=== PATIENT | male | born 1940 | race Hispanic/Latino ===

== ENCOUNTER 2018-11-02 14:20 | Inpatient (IN) | payer MEDICARE ==
--- NOTE | 2018-11-02 14:36 | Emergency Department Report ---
ED Altered Mental Status HPI - General Stated Complaint: SYNCOPE Time Seen by Provider: 11/02/18 14:34 ED Review of Systems ROS: Stated complaint: SYNCOPE Other details as noted in HPI Critical care attestation.: If time is entered above; I have spent that time in minutes in the direct care of this critically ill patient, excluding procedure time. ED Disposition Condition: Stable
[2018-11-02] MEDS ORDERED: NACL 0.9% 1000 ML 1,000 ML IV ONE (14:44)
[2018-11-02 15:05] LABS: Basophils % (Auto) 0.2 % (0.0-1.8); Hematocrit 40.4 % (35.5-45.6); Lymphocytes # (Auto) 0.6 K/mm3 (1.2-5.4); Lymphocytes % (Auto) 6.9 % (13.4-35.0); Mean Corpuscular HGB Conc 35 % (32-34); Mean Corpuscular Volume 92 fl (84-94); Monocytes # (Auto) 0.6 K/mm3 (0.0-0.8); Monocytes % (Auto) 6.5 % (0.0-7.3); Platelet Count 227 K/mm3 (140-440); Red Cell Distribution Width 14.1 % (13.2-15.2)
[2018-11-02 15:25] LABS: Albumin 4.1 g/dL (3.9-5); Calcium 9.9 mg/dL (8.4-10.2)
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
[2018-11-02 16:38] LABS: Bilirubin,Urine NEG (Negative); Blood,Urine NEG (Negative); Color,Urine Straw (Yellow); Mucus,Urine FEW /HPF; Protein,Urine <15 mg/dL mg/dL (Negative); Urobilinogen,Urine < 2.0 mg/dL (<2.0); WBC,Urine < 1.0 /HPF (0.0-6.0)
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
--- NOTE | 2018-11-02 17:28 | Cat Scan Report ---
CT ABDOMEN AND PELVIS WITHOUT CONTRAST INDICATION / CLINICAL INFORMATION: diarhea, hx of diverticulits and obstruction. TECHNIQUE: Axial CT images were obtained through the abdomen and pelvis without IV contrast. All CT scans at [facility] location are performed using CT dose reduction for ALARA by means of automated exposure control. COMPARISON: None available. FINDINGS: LOWER CHEST: No significant abnormality. LIVER: No significant abnormality. GALLBLADDER: No significant abnormality. BILE DUCTS: No significant abnormality. PANCREAS: No significant abnormality. SPLEEN: No significant abnormality. ADRENALS: No significant abnormality. RIGHT KIDNEY and URETER: Significant cortical thinning with renal sinus lipomatosis. Punctate calcifi cations present. LEFT KIDNEY and URETER: Significant cortical thinning with renal sinus lipomatosis. Punctate calcific ations present. STOMACH and SMALL BOWEL: Multiple loops of dilated small bowel with air-fluid levels COLON: No significant abnormality. APPENDIX: No significant abnormality. PERITONEUM: Surgical changes are present deep pelvis. LYMPH NODES: No significant adenopathy. AORTA and ARTERIES: No significant abnormality. IVC and VEINS: No significant abnormality. URINARY BLADDER: No significant abnormality. REPRODUCTIVE ORGANS: No significant abnormality. ADDITIONAL FINDINGS: None. SKELETAL SYSTEM: No lytic or sclerotic bone lesion can be identified. Extensive degenerative changes lumbar spine present IMPRESSION: 1. Abnormal appearance of the CT abdomen pelvis consistent with a small bowel obstruction 2. Evidence of previous surgery within the pelvis 3. Diverticulosis descending colon and sigmoid colon 4. Cortical thinning both kidneys with bilateral nephrolithiasis Signer Name: Jese Montilla MD Signed: 11/02/2018 5:24 PM Workstation Name: [id number]
--- NOTE | 2018-11-02 17:44 | XRay Report ---
CHEST 1 VIEW INDICATION: syncope COMPARISON: None FINDINGS: Support devices: None Heart: Normal Lungs/Pleura: No acute pulmonary or pleural findings. IMPRESSION: 1. Negative study. Signer Name: Joao Bynum MD Signed: 11/02/2018 5:39 PM Workstation Name: [id number]
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
[2018-11-02] MEDS ORDERED: ZOFRAN IV PRN (20:44)
[2018-11-02] MEDS ORDERED: DILAUDID IV PRN (20:44)
[2018-11-02] MEDS ORDERED: TYLENOL PO PRN (20:44)
[2018-11-02] MEDS ORDERED: SODIUM CHLORIDE FLUSH SYRINGE 10 ML IV PRN (20:44)
[2018-11-02] MEDS ORDERED: REGLAN IV PRN ×2 (20:44→20:55)
[2018-11-02] MEDS ORDERED: D5NS 1,000 ML IV SCH (21:00)
[2018-11-02] MEDS ORDERED: PEPCID IV SCH (22:00)
[2018-11-02] MEDS: PEPCID IV SCH (22:22)
[2018-11-02] MEDS: SODIUM CHLORIDE FLUSH SYRINGE 10 ML IV SCH (22:23)
[2018-11-03 04:12] LABS: Basophils % (Auto) 0.2 % (0.0-1.8); Eosinophils % (Auto) 0.3 % (0.0-4.3); Hemoglobin 14.5 gm/dl (11.8-15.2); Lymphocytes # (Auto) 0.8 K/mm3 (1.2-5.4); Lymphocytes % (Auto) 11.7 % (13.4-35.0); Mean Corpuscular HGB Conc 35 % (32-34); Mean Corpuscular Volume 92 fl (84-94); Monocytes # (Auto) 0.7 K/mm3 (0.0-0.8); Monocytes % (Auto) 10.5 % (0.0-7.3); Platelet Count 220 K/mm3 (140-440); Red Blood Count 4.59 M/mm3 (3.65-5.03)
[2018-11-03 04:37] LABS: Albumin 3.8 g/dL (3.9-5); Calcium 9.9 mg/dL (8.4-10.2)
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
--- NOTE | 2018-11-03 09:55 | Vascular Lab Report ---
BILATERAL CAROTID DOPPLER ULTRASOUND INDICATION : syncope TECHNIQUE: Grayscale and color Doppler imaging performed through the neck. COMPARISON: None FINDINGS: Right: There is moderate partially calcified irregular plaque in the proximal ICA. Peak systolic ve locity in the CCA is 89 cm/s with end-diastolic velocity of 16 cm/s. Peak systolic velocity in the pr oximal ICA is 123 cm/s with end-diastolic velocity of 29 cm/s. ICA to CCA ratio is less than 2. There is antegrade flow in the ECA and the vertebral artery. Left: There is moderate partially calcified irregular plaque in the proximal ICA. Peak systolic veloc ity in the CCA is 101 cm/s with end-diastolic velocity of 16 cm/s. Peak systolic velocity in the prox imal ICA is 194 cm/s with end-diastolic velocity of 47 cm/s. ICA to CCA ratio is less than 2. There i s antegrade flow in the ECA and the vertebral artery. IMPRESSION: 50-69% stenosis in the proximal left ICA by Doppler velocities. There is less than 50% josie cody narrowing in the right carotid system.. Signer Name: Max Cochran Jr, MD Signed: 11/03/2018 9:51 AM Workstation Name: [id number]
[2018-11-03] MEDS: PEPCID IV SCH ×2 (10:07→21:20)
[2018-11-03] MEDS: HEPARIN SUB-Q SCH ×2 (10:09→21:20)
[2018-11-03] MEDS: SODIUM CHLORIDE FLUSH SYRINGE 10 ML IV SCH ×2 (10:17→21:20)
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
[2018-11-04 05:21] LABS: Calcium 9.8 mg/dL (8.4-10.2)
[2018-11-04] MEDS ORDERED: LEXISCAN IV ONE ×2 (07:51)
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
--- NOTE | 2018-11-04 10:12 | Progress Note ---
Assessment and Plan Acute Renal Failure secondary to Prerenal Etiology from N/V on CKD -stable Cr, ok to be discharged from renal standpoint -States baseline serum creatinine is~ 2.6/2.7 and that he sees his outpatient senior sales compensation analyst, Dr. Luis Bryant in [place] every 3 months -CXR- no acute findings -Monitor I/O's -Avoid nephrotoxic agents -Monitor renal function closely Syncope: -Echo- LVEF 45-50% -Carotid doppler-Left ICA- 59-60% stenosis -As per primary team Small Bowel Obstruction: -Per Abdomen CT report -General surgeon onboard Hypertension: -Controlled -Monitor BP Subjective Date of service: 11/04/18 Principal diagnosis: chronic kidney disease Interval history: was in stress test in AM Objective - Vital Signs Vital signs: Vital Signs - 12hr 11/03/18 11/04/18 11/04/18 23:20 04:09 04:56 Temperature 97.7 F 97.3 F L Pulse Rate 54 L 51 L 42 L Respiratory 18 18 Rate Blood Pressure 145/71 158/66 O2 Sat by Pulse 96 99 Oximetry 11/04/18 08:20 Temperature 98.1 F Pulse Rate 94 H Respiratory 18 Rate Blood Pressure 173/105 O2 Sat by Pulse 96 Oximetry - Lab 11/03/18 03:07 11/04/18 04:28 Most recent lab results Calcium 9.8 mg/dL (8.4-10.2) 11/04/18 04:28 Phosphorus 3.10 mg/dL (2.5-4.5) 11/04/18 04:28 76 mmol/L 11/02/18 16:08 Medications & Allergies - Medications Allergies/Adverse Reactions: Allergies ciprofloxacin [From Cipro] Adverse Reaction (Verified 11/02/18 14:46) Unknown levofloxacin [From Levaquin] Adverse Reaction (Verified 11/02/18 14:46) Unknown Penicillins Adverse Reaction (Verified 11/02/18 14:46) Rash Home Medications: Home Medications Medication Instructions Recorded Confirmed Last Taken Type Bumetanide [Bumex 1 mg tab] 1 mg PO BID 11/02/18 11/02/18 Unknown History Calcitriol [Rocaltrol] 0.25 mcg PO QDAY 11/02/18 11/02/18 Unknown History Metoprolol Tartrate 100 mg PO QDAY 11/02/18 11/02/18 Unknown History Vitamin D3 10,000 unit 1 mg PO QDAY 11/02/18 11/02/18 Unknown History Active Medications: Generic Name Dose Route Start Last Admin Trade Name Rudy PRN Reason Stop Dose Admin Acetaminophen 650 mg 11/02/18 20:44 Tylenol PO Q4H PRN Pain MILD(1-3)/Fever >100.5/[facility] Famotidine 10 mg 11/02/18 22:00 11/03/18 21:20 Pepcid IV 10 mg BID [facility] Administration Heparin Sodium (Porcine) 5,000 unit 11/03/18 10:00 11/03/18 21:20 Heparin SUB-Q Not Given Q12HR [facility] Hydromorphone HCl 0.5 mg 11/02/18 20:44 Dilaudid IV Q3H PRN Pain , Severe (7-10) Dextrose/Sodium Chloride 1,000 mls @ 75 mls/hr 11/02/18 21:00 11/02/18 22:22 D5ns IV 75 mls/hr DIRECT [facility] Administration Metoclopramide HCl 5 mg 11/02/18 20:55 Reglan IV Q6H PRN Nausea And Vomiting Ondansetron HCl 4 mg 11/02/18 20:44 Zofran IV Q8H PRN Nausea And Vomiting Sodium Chloride 10 ml 11/02/18 22:00 11/03/18 21:20 Sodium Chloride Flush Syringe 10 Ml IV 10 ml BID [facility] Administration Sodium Chloride 10 ml 11/02/18 20:44 Sodium Chloride Flush Syringe 10 Ml IV PRN PRN LINE FLUSH
[2018-11-04 10:56] VITALS: BP 157/86
--- NOTE | 2018-11-04 16:55 | Treadmill Report ---
NUCLEAR PERFUSION SCAN REFERRING PHYSICIAN: Dr. Hernandez. PROTOCOL: The patient was brought to the stress lab in postabsorptive state, given 10 mCi of technetium 99m at rest. The patient underwent rest imaging. The patient underwent Lexiscan stress test. At peak stress, the patient was given 26 mCi of technetium 99m. Shortly thereafter, the patient underwent stress imaging. Raw imaging reveals mild GI artifact, no significant motion artifact. SPECT images examined carefully in horizontal long axis, vertical long axis, and short axis views. There is normal homogenous uptake of radioisotope in all four segments. No evidence of significant fixed or reversible perfusion defects suggestive of prior infarction or ischemia. Normal LV function. CONCLUSIONS: 1. Normal myocardial perfusion scan without evidence of active ischemia or prior infarction. 2. Normal left ventricular systolic performance without evidence of stress-induced segmental wall motion abnormalities or transient ischemic dilatation. JOB# [id number] MAYNOR/MAGNO
== END 2018-11-04 13:07 | disposition home or self-care (01) | DRG 683 ==
LOC: ED 14:20 → 4A 18:24
PROVIDERS: ADMIT Internal Medicine; ATTEND Internal Medicine
DX: N17.9 Acute kidney failure, unspecified (principal); K56.600 Partial intestinal obstruction, unspecified as to cause; N18.4 Chronic kidney disease, stage 4 (severe); E86.0 Dehydration; E11.22 Type 2 diabetes mellitus with diabetic chronic kidney disease; I12.9 Hypertensive chronic kidney disease with stage 1 through stage 4 chronic kidney disease, or unspecified chronic kidney disease; Z90.49 Acquired absence of other specified parts of digestive tract; Z82.49 Family history of ischemic heart disease and other diseases of the circulatory system; Z88.0 Allergy status to penicillin; Z88.1 Allergy status to other antibiotic agents; V49.49XA Driver injured in collision with other motor vehicles in traffic accident, initial encounter; Y93.89 Activity, other specified; Y92.488 Other paved roadways as the place of occurrence of the external cause; Y99.8 Other external cause status; Z79.84 Long term (current) use of oral hypoglycemic drugs
CPT/HCPCS: 36415; 70450; 71045; 74176; 78452; 80048; 80053; 81001; 82962; 83036; 83690; 83935; 84100; 84133; 84300; 84484; 85025; 93005; 93010; 93017; 93306; 93880; G0378; A9502; J1644; J2785; J7030; J7042